=== PATIENT | male | born 1990 | race African-American/Black ===

== ENCOUNTER 2019-08-22 20:16 | Emergency (ER) | payer SELFPAY ==
[~2019-08-22] VITALS: Ht 193 cm; Wt 136.1 kg
[2019-08-22 20:30] VITALS: BP 135/81
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
[2019-08-22] MEDS ORDERED: IBUPROFEN600 MG ORAL (21:15)
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
[2019-08-22 21:20] VITALS: BP 135/81
--- NOTE | 2019-08-22 21:20 | NUR ---
ER DISCHARGE NOTE: Patient is cleared to be discharged per ERMD, pt is aox4, on room air, with stable vital signs. pt was given dc and prescription instructions, pt was able to verbalize understanding, pt id band removed. pt is able to ambulate with steady gait. pt took all belongings.
--- NOTE | 2019-08-23 10:15 | Diagnostic Imaging Report ---
Indication: Right wrist pain COMPARISON: None Findings: 3 views of the right wrist were obtained. No acute fractures, malalignment, erosions or periostitis are identified. Soft tissues are unremarkable. Impression: No acute findings.
== END 2019-08-22 21:20 | disposition home or self-care (01) ==
LOC: EMR 21:00
DX: S63.501A Unspecified sprain of right wrist, initial encounter (principal); Y04.0XXA Assault by unarmed brawl or fight, initial encounter; Y92.9 Unspecified place or not applicable
CPT/HCPCS: 99283